=== PATIENT | female | born 1955 | race Two or more races ===

== ENCOUNTER 2025-05-11 13:47 | Inpatient (IN) | payer OTHER ==
[~2025-05-11] VITALS: Ht 157.5 cm; Wt 68.0 kg
[2025-05-11] MEDS ORDERED: ROSUVASTATIN CA40 MG PO (14:21)
--- NOTE | 2025-05-11 14:21 | NUR ---
PTE RFEIE DOLOR Y ALDOR AL ORINAL DESDE ESTA MANANA , SE LE EDI S/V SE UBICA E EN RICHARD DE ESPERA.
--- NOTE | 2025-05-11 15:55 | NUR ---
SE ORIENTA PTE SOBRE TRATAMIENTO MEDICO Y SE EJECUTA EN TELLO TOTALIDAD
[2025-05-11 16:05] LABS: BASO % 0.4 % (0.1-1.2); EOS # 0.03 (0.04-0.54); EOS % 0.4 % (0.7-7.0); LYMPH # 1.15 (1.18-3.74); LYMPH % 14.2 % (19.3-53.1); MEAN PLATELET VOLUME 10.50 fl (9.4-12.4); MONO # 0.42 (0.24-0.82); MONO % 5.2 % (4.7-12.5); NEUT # 6.47 (1.56-6.13); NEUT % 79.7 % (34.0-71.1); RED CELL DISTRIBUTION WIDTH 12.1 % (11.6-14.4)
[2025-05-11 16:31] LABS: BUN CREA RATIO 21.0 (7.0-25.0); CREATININE SERUM 0.66 mg/dL (0.55-1.02); GFR 89.33; GLUCOSE FASTING 109.0 mg/dL (65-100); OSMOLALITY SERUM 288.0 MOSM/KG (275-295)
[2025-05-11 16:33] LABS: URINE APPEARANCE Clear; URINE BILIRRUBIN Negative (NEGATIVE); URINE BLOOD Negative; URINE COLOR Yellow; URINE GLUCOSE Negative (NEGATIVE); URINE KETONE Trace (NEGATIVE); URINE LEUKOCYTE Negative; URINE NITRATE Negative; URINE PROTEIN Negative (NEGATIVE); URINE UROBILINOGEN 1.0 E.U./dl
[2025-05-11 16:36] LABS: URINE BACTERIA 22.7 uL (0.0-1933); URINE EPITHELIAL CELLS 14.4 uL (0.0-38.8); URINE RBC 18.0 uL (0.0-20.8); URINE WBC 6.2 uL (0.0-23.2)
[2025-05-11 16:37] LABS: URINE CAST 0.00 uL (0.0-1.40)
[2025-05-11] MEDS ORDERED: KETOROLAC TROMETHAMINE 30 MG VIAL ONE ×2 (17:56→20:58)
[2025-05-11] MEDS ORDERED: OSELTAMIVIR PHOSPHATE 75 MG CAPSULE PO ONE (17:57)
[2025-05-11] MEDS ORDERED: CEFTRIAXONE SODIUM 1,000 MG VIAL ONE ×2 (17:57→18:13)
[2025-05-11] MEDS ORDERED: CEFTRIAXONE SODIUM 1,000 MG VIAL IV ONE (18:00)
[2025-05-11] MEDS ORDERED: 0.9 % SODIUM CHLORIDE 500 ML IV ONE (18:00)
[2025-05-11] MEDS ORDERED: TAMSULOSIN HCL 0.4 MG CAP PO ONE ×2 (18:00→18:17)
[2025-05-11] MEDS ORDERED: KETOROLAC TROMETHAMINE 30 MG VIAL IV ONE (18:00)
[2025-05-11] MEDS ORDERED: 0.9 % SODIUM CHLORIDE 1,000 ML IV ONE (19:15)
[2025-05-11] MEDS ORDERED: FAMOTIDINE/PF 20 MG in 0.9 % SODIUM CHLORIDE 8 ML IV PUSH SCH (20:07)
[2025-05-11] MEDS ORDERED: ONDANSETRON HCL 4 MG in 0.9 % SODIUM CHLORIDE 50 ML IV PRN (20:15)
[2025-05-11] MEDS ORDERED: MORPHINE SULFATE 2 MG/ML CARTRIDGE IV PRN (20:15)
[2025-05-11] MEDS ORDERED: ACETAMINOPHEN 500 MG GEL..CAP PO PRN (20:15)
[2025-05-11] MEDS ORDERED: KETOROLAC TROMETHAMINE 15 MG VIAL IU ONE (20:15)
[2025-05-11] MEDS ORDERED: 0.9 % SODIUM CHLORIDE 1,000 ML IV SCH (20:15)
[2025-05-11] MEDS ORDERED: FAMOTIDINE/PF 20 MG/2 ML VIAL ONE (20:58)
[2025-05-11 21:31] LABS: INR 1.02
[2025-05-11 22:33] VITALS: BP 131/63
[2025-05-12 00:21] VITALS: BP 137/71; O2SAT 96
[2025-05-12 07:47] VITALS: BP 128/59; O2SAT 97
[2025-05-12] MEDS ORDERED: CEFTRIAXONE SODIUM 2,000 MG in 0.9 % SODIUM CHLORIDE 100 ML IV SCH (09:00)
[2025-05-12] MEDS ORDERED: ROSUVASTATIN CALCIUM 20 MG TABLET PO SCH (09:00)
[2025-05-12] MEDS ORDERED: TAMSULOSIN HCL 0.4 MG CAP PO SCH (09:00)
[2025-05-12] MEDS ORDERED: TAMS0.4C PO (13:19)
== END 2025-05-12 13:22 | disposition home or self-care (01) | DRG 694 ==
LOC: ER 13:47 → MEDI 20:44
PROVIDERS: General Practice; ADMIT Internal Medicine; ATTEND Internal Medicine
PROC: BW21ZZZ Computerized Tomography (CT Scan) of Abdomen and Pelvis (ICD-10-PCS; principal; 2025-05-11)
DX: N13.2 Hydronephrosis with renal and ureteral calculous obstruction (principal); N13.1 Hydronephrosis with ureteral stricture, not elsewhere classified; R30.0 Dysuria